=== PATIENT | female | born 1965 | race Caucasian/White ===

== ENCOUNTER → 2016-08-19 | Outpatient (CLI) | payer BC ==
--- NOTE | 2016-08-19 12:37 | DIAGNOSTIC IMAGING REPORT ---
PET/CT CLINICAL HISTORY: Colorectal/anal carcinoma. COMPARISON STUDY: No priors. TECHNIQUE: One hour following the IV administration of 12.02 mCi of F-18 FDG, PET/CT examination was performed from the orbital meatal line through the bony pelvis. Noncontrast CT is performed for the purposes of anatomic correlation and attenuation correction. Note that this does not reflect a diagnostic CT examination. Images were reviewed on a separate [employer] independent workstation. Fused images were obtained. Standard uptake values reported are maximum values within the region of interest expressed in gm/mL. FINDINGS: PET FINDINGS: Head and neck: There is expected physiologic activity within the visualized brain parenchyma at the skull base and the salivary glands. Foci of pharyngeal activity are of indeterminant significance. There is indeterminant activity localizing to the right mandible on axial image #27. There is no corresponding bone lesion identified. Thorax: Evaluation of the thorax demonstrates expected physiologic myocardial activity. There is patchy airspace consolidation at the right lung base. This demonstrates low level FDG activity with a maximum SUV of 1.7. Additional foci of groundglass change are seen in the left upper lobe on images #74 and #78. These also demonstrate faint FDG activity with a maximum SUV of 0.9. Multiple foci of intramuscular activity in the lower neck and chest wall are likely on a physiologic basis. There are scattered subcentimeter mediastinal lymph nodes. These were not FDG avid. Abdomen and pelvis: There is expected activity within the liver, spleen, kidneys, renal collecting system, and bladder. Low-level bowel activity is likely within physical limits. Postoperative changes are seen in the region of the anus. Low level FDG activity at this site is nonspecific and demonstrates a maximum SUV of 2.5. Unenhanced CT images: Imaged brain parenchyma at the skull base is normal in appearance. There is an air-fluid level in the left maxillary antrum. The paranasal sinuses are otherwise clear. The mastoid air cells are well pneumatized. The bony orbits appear intact. Orbital contents are within normal limits. The salivary and thyroid glands are normal as visualized. There is no cervical lymphadenopathy. A left internal jugular central venous infusion port is in place. The heart is mildly enlarged and there is a small to moderate pericardial effusion. The pulmonary trunk is dilated suggesting pulmonary artery hypertension. Advanced emphysematous change is identified. No pleural effusion is seen. There is no axillary lymphadenopathy. A 1.3 cm cyst is noted in the left lobe of the liver. The unenhanced liver is otherwise normal as visualized. Hyperdense material is suggested within the gallbladder lumen. There is nonspecific gallbladder wall thickening and edema. The unenhanced spleen, adrenal glands, pancreas, and kidneys are grossly normal. The abdominal aorta is normal in caliber noting mild atherosclerotic calcification. There are postoperative changes from perianal resection with a left lower quadrant colostomy. A rectosigmoid pouch is noted in the pelvis. There is no bowel obstruction. There is a small parastomal hernia containing fluid. There is trace perihepatic ascites. No intraperitoneal free air is seen. There is no abdominal, pelvic, or inguinal lymphadenopathy. Body wall edema is noted. The bladder is decompressed and not assessed. The uterus is surgically absent. No adnexal lesion is seen. The skeletal structures are osteopenic. There are numerous subcentimeter sclerotic foci seen throughout the visualized skeleton. [employer] lesions are seen in the right ilium on image #179, the left ilium on image #182, and the T10 vertebral body on image #106. These are of indeterminant etiology and significance. IMPRESSION: 1. There is no definite evidence of metastatic disease. 2. There are postoperative changes identified in the perianal region. Low level FDG activity at this site is nonspecific and may be related to previous surgery. 3. There are postoperative changes from left lower quadrant colostomy. No bowel obstruction is seen. 4. There are patchy groundglass opacities in the left upper lobe and airspace consolidation at the right lung base. These foci demonstrate minimal FDG activity and are indeterminant, likely on an infectious or inflammatory basis. Follow-up chest CT in 2-3 months time is recommended for reassessment. 5. The gallbladder wall appears thickened and edematous. This is nonspecific. Correlation with clinical findings and serum bilirubin levels is recommended. 6. There is nonspecific FDG activity localizing to the right aspect of the mandible. There is no clear corresponding bony lesion. Clinical correlation will be required. 7. There are several subcentimeter sclerotic foci scattered throughout the skeletal structures. These are of indeterminate significance and are too small for PET characterization. Attention at follow-up is recommended. 8. Body wall edema is noted. 9. Cardiomegaly with a moderate pericardial effusion. 10. Advanced emphysema. 11. Additional changes as above. Electronically signed by: Miky Acevedo M.D. 08/19/2016 12:35 PM Dictated Date/Time: 08/19/2016 12:08 PM
== END | disposition home or self-care (01) ==
LOC: C.PET 08:59
PROVIDERS: ATTEND Colon & Rectal Surgery
DX: C21.0 Malignant neoplasm of anus, unspecified (principal)